=== PATIENT | male | born 1960 | race Caucasian/White ===

== ENCOUNTER 2018-11-11 16:36 | Inpatient (IN) | payer BC ==
[2018-11-11] MEDS ORDERED: ROCURONIUM BROMIDE INJ 50 MG/5 ML VIAL IV ONE (16:45)
[2018-11-11] MEDS ORDERED: ETOMIDATE INJ/PF 20 MG/10 ML SDV IV ONE (16:45)
[2018-11-11] MEDS ORDERED: METHYLPREDNISOLONE INJ 125 MG/2 ML SDV IV ONE (16:55)
[2018-11-11] MEDS ORDERED: IPRATROPIUM/ALBUTEROL 0.5-2.5 MG/3 ML AMPUL NEB ONE (16:55)
--- NOTE | 2018-11-11 16:57 | ER Document Report ---
ED General - General Chief Complaint: Unresponsive Stated Complaint: RESPIRATORY DISTRESS Time Seen by Provider: 11/11/18 16:53 Primary Care Provider: NYDIA JOLLY PA-C [Primary Care Provider] - Follow up as needed Notes: Patient is a 58-year-old male with COPD that presents to the emergency department for chief complaint of unresponsiveness. Per EMS the patient was apparently found unresponsive by family, and he was thought to be sleeping earlier this morning and last night, but then was snoring more and unable to be woken up by family so EMS was called. Upon arrival the patient had a GCS of 3, his pulse ox was in the 80s, but they were able to maintain a pulse ox of 94% with assisted breaths, and a nasopharyngeal airway. Patient has not woken up more for them since initially arriving to the home. They placed a left tibial intraosseous line. Past medical history obtained from family Past Medical History: COPD, obesity, hypertension, hyperlipidemia Past Surgical History: Shoulder surgery Social History: Former smoker, no current alcohol or drug use, lives at home with family Family History: Reviewed and noncontributory for presenting illness Allergies: Reviewed, see documented allergy list. REVIEW OF SYSTEMS: Complete review of systems is not obtainable at this time secondary to the patient's unresponsive state PHYSICAL EXAMINATION: Vital signs reviewed, nursing noted reviewed. GENERAL: Obese male, unresponsive. HEAD: Atraumatic, normocephalic. EYES: PERRLA, sclera anicteric, conjunctiva are normal. ENT: Nasal pharyngeal airway noted in the right nares, there is some blood in t he tubing, and blood in the posterior pharynx NECK: supple without lymphadenopathy, no JVD LUNGS: Expiratory wheezing noted throughout all lung sherwood, with assisted breaths, diminished lung sounds overall HEART: Regular rate and rhythm without murmurs ABDOMEN: Soft, morbidly obese, normoactive bowel sounds. No distention noted, not apparently tender EXTREMITIES: Bilateral lower extremity edema, 2+ pitting, left IO in place in the left tibia. NEUROLOGICAL: GCS: 3 PSYCH: Unresponsive SKIN: Cool, Dry, normal turgor, candidal appearing rash is noted in the groin and on the pannus - Related Data Allergies/Adverse Reactions: No Known Allergies Allergy (Unverified 11/11/18 21:20) Past Medical History - Social History Smoking Status: Current Every Day Smoker Family History: Reviewed & Not Pertinent Physical Exam - Vital signs Vitals: Pulse Resp BP Pulse Ox 91 16 105/45 L 92 11/11/18 16:41 11/11/18 16:41 11/11/18 16:41 11/11/18 16:41 Course - Re-evaluation Re-evalutation: Patient seen and examined vital signs reviewed. Laboratory data and imaging were ordered as appropriate for the patient's presenting symptoms and complaint, with consideration of any critical or life threatening conditions that may be associated with their obtained history and exam as noted above. Patient was treated with RSI, as the patient was unresponsive, GCS of 3 on arrival, with shallow breathing, high suspicion for CO2 narcosis. Patient was successfully intubated, placed on the ventilator, with higher ventilation rate, blood work was obtained, and pending in the lab, EKG did demonstrate prolonged QTC, patient was given 2 g of IV magnesium. In addition the patient was given Solu-Medrol, and DuoNeb breathing treatments Results were reviewed when available and demonstrated ABG came back first, which demonstrated severe respiratory acidosis with a pH of 7.15, and CO2 of greater than 90, the remainder the patient's blood work continue to come back, demonstrated a severe renal impairment and acute renal failure, with hyperkalemia, patient was given she has medications including 10 units of i nsulin, along with an amp of D50, 2 AMPS of sodium bicarbonate, he was also given IV calcium gluconate, 3 g total. Patient was bolused with 3 L of IV normal saline, he was started to become hypotensive, despite bolusing of fluids, and therefore central venous catheter was placed in the right internal jugular vein, as described in procedure notes, patient was started on low-dose norepinephrine at 4 mcg, which was maintained in the patient's blood pressure, onset of this, however the patient was rather asynchronous with the ventilator, and biting down on the tube causing high peak pressures, despite being on propofol and Versed, he was shaking his head and answering simple questions yes and no, and moving all extremities, therefore he was given a single dose of 10 mg of vecuronium, at this point the patient's pulse ox was improving, he was however on 100% FiO2, and his PEEP had to be incr eased to 15. Patient became much more stable, after these measures. At this point I updated the family, and the current state of the patient, including the patient's is at bedside, they stated that when all this occurred, they did not let EMS noted that the patient was effectively a DO NOT INTUBATE patient, and he did not want CPR. I discussed with him at length, that the patient is currently stable, and he was answering questions, and I would not advise extubating him at this time, and that we could potentially wean him off those sedatives, after his paralytic had worn off, to specifically asked the patient if he wanted to continue to be intubated on the ventilator. I discussed this with her risk-management officer Odette Reeves, who felt this was a reasonable approach, and the patient was unable to answer these questions, that I should go with the next of kin which is the patient's 's wishes and what she knows of the patient's wishes, which may be to ultimately extubate the patient in the emergency department. I did plan on transferring him to a tertiary facility, due to the multisystem organ failure including acute renal failure, with the potential need for CVVH, as the patient is requiring pressors, and may require dialysis at some point. We do not offer that this facility. Evaluation was most consistent with acute respiratory failure with hypoxia and hypercapnia, acute renal failure, severe hyperkalemia, respiratory acidosis, hypotension Results were discussed with the patient at this point after careful consideration I feel that that patient should be transferred to [] due to []. This was discussed with the patient that it is in the best interest for their care to be transferred, the risks and benefits of transfer were discussed, including but not limited to clinical deterioration during transport, respiratory distress, and potential for traumatic injuries. Patient agreed with this plan of care. *Note is created using voice recognition software and may contain spelling, syntax or grammatical errors. 11/11/18 21:55 I went into the patients room after sedation had been wean and patient was waking up. I addressed the patient and he was responding to commands. I asked him if he understood he was intubated and he nodded his head. I asked him if he still wanted to the breathing tube in and he nodded yes. I informed him that he was would like very rapidly if it was removed and I asked if he understood this and he nodded yes. I repeated these questions 3 times with the same response. His family was present for this conversation and they felt this was his wishes and agreed to proceed with extubation. The patient was extubated at 2155 and placed on nasal cannula. Patient pulse ox immediately began to desaturate into the 50s. DNR form placed on his chart. 11/11/18 22:48 Patient was reevaluated, he is alert, pulse ox remains in the 60s, nasal cannula, patient is tachycardic, I discussed this case with the hospitalist, Dr. Mike, to admit him for comfort measures, which she was agreeable to, discussed the family and they are appreciative, patient has ordered 2 mg of morphine every 15 minutes for discomfort, he was given a dose of glycopyrrolate for secretions. Laboratory 11/11/18 11/11/18 11/11/18 16:43 16:43 16:43 WBC Cancelled RBC Cancelled Hgb Cancelled Hct Cancelled MCV Cancelled MCH Cancelled MCHC Cancelled RDW Cancelled Plt Count Cancelled Seg Neutrophils % Cancelled Lymphocytes % Cancelled Monocytes % Cancelled Eosinophils % Cancelled Basophils % Cancelled Absolute Neutrophils Cancelled Absolute Lymphocytes Cancelled Absolute Monocytes Cancelled Absolute Eosinophils Cancelled Absolute Basophils Cancelled Platelet Estimate Cancelled PT 12.5 INR 0.89 Carbonic Acid HCO3/H2CO3 Ratio ABG pH ABG pCO2 ABG pO2 ABG HCO3 ABG Total CO2 ABG O2 Saturation ABG Base Excess VBG pH VBG pCO2 VBG HCO3 VBG Base Excess FiO2 Sodium Cancelled Potassium Cancelled Chloride Cancelled Carbon Dioxide Cancelled Anion Gap Cancelled BUN Cancelled Creatinine Cancelled Est GFR ( Amer) Cancelled Est GFR (Non-Af Amer) Cancelled Glucose Cancelled Lactic Acid Calcium Cancelled Total Bilirubin Cancelled Direct Bilirubin Cancelled Neonat Total Bilirubin Cancelled Neonat Direct Bilirubin Cancelled Neonat Indirect Bili Cancelled AST Cancelled ALT Cancelled Alkaline Phosphatase Cancelled Creatine Kinase Cancelled Troponin I Total Protein Cancelled Albumin Cancelled Urine Color Urine Appearance Urine pH Ur Specific [place] Urine Protein Urine Glucose (UA) Urine Ketones Urine Blood Urine Nitrite Urine Bilirubin Urine Urobilinogen Ur Leukocyte Esterase Urine WBC (Auto) Urine RBC (Auto) U Hyaline Cast (Auto) Urine Bacteria (Auto) Squamous Epi Cells Auto Urine Mucus (Auto) Urine Ascorbic Acid Slides for Path Review Cancelled 11/11/18 11/11/1819 16:43 16:43 16:43 WBC RBC Hgb Hct MCV MCH MCHC RDW Plt Count Seg Neutrophils % Lymphocytes % Monocytes % Eosinophils % Basophils % Absolute Neutrophils Absolute Lymphocytes Absolute Monocytes Absolute Eosinophils Absolute Basophils Platelet Estimate PT INR Carbonic Acid HCO3/H2CO3 Ratio ABG pH ABG pCO2 ABG pO2 ABG HCO3 ABG Total CO2 ABG O2 Saturation ABG Base Excess VBG pH Cancelled VBG pCO2 Cancelled VBG HCO3 Cancelled VBG Base Excess Cancelled FiO2 Sodium Potassium Chloride Carbon Dioxide Anion Gap BUN Creatinine Est GFR ( Amer) Est GFR (Non-Af Amer) Glucose Lactic Acid 0.6 L Calcium Total Bilirubin Direct Bilirubin Neonat Total Bilirubin Neonat Direct Bilirubin Neonat Indirect Bili AST ALT Alkaline Phosphatase Creatine Kinase Troponin I Cancelled Total Protein Albumin Urine Color Urine Appearance Urine pH Ur Specific [place] Urine Protein Urine Glucose (UA) Urine Ketones Urine Blood Urine Nitrite Urine Bilirubin Urine Urobilinogen Ur Leukocyte Esterase Urine WBC (Auto) Urine RBC (Auto) U Hyaline Cast (Auto) Urine Bacteria (Auto) Squamous Epi Cells Auto Urine Mucus (Auto) Urine Ascorbic Acid Slides for Path Review 11/11/18 11/11/18 11/11/18 17:05 17:13 17:32 WBC 6.9 RBC 4.22 L Hgb 12.8 L Hct 39.6 MCV 94 MCH 30.2 MCHC 32.2 RDW 15.2 H Plt Count 255 Seg Neutrophils % 83.7 H Lymphocytes % 8.9 L Monocytes % 6.8 Eosinophils % 0.0 Basophils % 0.6 Absolute Neutrophils 5.7 Absolute Lymphocytes 0.6 Absolute Monocytes 0.5 Absolute Eosinophils 0.0 Absolute Basophils 0.0 Platelet Estimate PT INR Carbonic Acid 2.77 H HCO3/H2CO3 Ratio 11:1 ABG pH 7.15 L* ABG pCO2 91.9 H* ABG pO2 62.3 L ABG HCO3 31.5 H ABG Total CO2 34.3 H ABG O2 Saturation 83.3 L ABG Base Excess 0 VBG pH VBG pCO2 VBG HCO3 VBG Base Excess FiO2 50% VENT Sodium Potassium Chloride Carbon Dioxide Anion Gap BUN Creatinine Est GFR ( Amer) Est GFR (Non-Af Amer) Glucose Lactic Acid Calcium Total Bilirubin Direct Bilirubin Neonat Total Bilirubin Neonat Direct Bilirubin Neonat Indirect Bili AST ALT Alkaline Phosphatase Creatine Kinase Troponin I Total Protein Albumin Urine Color YELLOW Urine Appearance SLIGHTLY-CLOUDY Urine pH 5.0 Ur Specific [place] 1.016 Urine Protein 30 H Urine Glucose (UA) NEGATIVE Urine Ketones NEGATIVE Urine Blood NEGATIVE Urine Nitrite NEGATIVE Urine Bilirubin NEGATIVE Urine Urobilinogen NEGATIVE Ur Leukocyte Esterase NEGATIVE Urine WBC (Auto) 1 Urine RBC (Auto) 0 U Hyaline Cast (Auto) 9 Urine Bacteria (Auto) TRACE Squamous Epi Cells Auto 1 Urine Mucus (Auto) RARE Urine Ascorbic Acid NEGATIVE Slides for Path Review 11/11/18 11/11/18 11/11/18 17:43 17:43 21:37 WBC RBC Hgb Hct MCV MCH MCHC RDW Plt Count Seg Neutrophils % Lymphocytes % Monocytes % Eosinophils % Basophils % Absolute Neutrophils Absolute Lymphocytes Absolute Monocytes Absolute Eosinophils Absolute Basophils Platelet Estimate PT INR Carbonic Acid HCO3/H2CO3 Ratio ABG pH ABG pCO2 ABG pO2 ABG HCO3 ABG Total CO2 ABG O2 Saturation ABG Base Excess VBG pH VBG pCO2 VBG HCO3 VBG Base Excess FiO2 Sodium 139.2 138.1 Potassium 8.1 H* 6.5 H* D Chloride 93 L 96 L Carbon Dioxide 34 H 32 H Anion Gap 12 10 BUN 90 H 82 H Creatinine 5.09 H 3.43 H Est GFR ( Amer) 14 L 22 L Est GFR (Non-Af Amer) 12 L 19 L Glucose 172 H 159 H Lactic Acid Calcium 7.4 L 8.2 L Total Bilirubin 0.4 Direct Bilirubin 0.4 Neonat Total Bilirubin Not Reportable Neonat Direct Bilirubin Not Reportable Neonat Indirect Bili Not Reportable AST 38 ALT 25 Alkaline Phosphatase 70 Creatine Kinase 592 H Troponin I 0.017 Total Protein 7.7 Albumin 4.3 Urine Color Urine Appearance Urine pH Ur Specific [place] Urine Protein Urine Glucose (UA) Urine Ketones Urine Blood Urine Nitrite Urine Bilirubin Urine Urobilinogen Ur Leukocyte Esterase Urine WBC (Auto) Urine RBC (Auto) U Hyaline Cast (Auto) Urine Bacteria (Auto) Squamous Epi Cells Auto Urine Mucus (Auto) Urine Ascorbic Acid Slides for Path Review Chest X-Ray 11/11/18 16:55 IMPRESSION: Markedly limited examination demonstrating an apparent endotracheal tube terminating approximately 2.5 cm cranial to the lucia. - Vital Signs Vital signs: Temp Pulse Resp BP Pulse Ox 91 18 121/77 100 11/11/18 16:41 11/11/18 21:00 11/11/18 20:56 11/11/18 21:05 - Laboratory Result Diagrams: 11/11/18 17:32 11/11/18 21:37 Laboratory results interpreted by me: 11/11/18 11/11/18 11/11/18 16:43 17:05 17:13 RBC Hgb RDW Seg Neutrophils % Lymphocytes % Carbonic Acid 2.77 H ABG pH 7.15 L* ABG pCO2 91.9 H* ABG pO2 62.3 L ABG HCO3 31.5 H ABG Total CO2 34.3 H ABG O2 Saturation 83.3 L Potassium Chloride Carbon Dioxide BUN Creatinine Est GFR ( Amer) Est GFR (Non-Af Amer) Glucose Lactic Acid 0.6 L Calcium Creatine Kinase Urine Protein 30 H 11/11/18 11/11/18 11/11/18 17:32 17:43 21:37 RBC 4.22 L Hgb 12.8 L RDW 15.2 H Seg Neutrophils % 83.7 H Lymphocytes % 8.9 L Carbonic Acid ABG pH ABG pCO2 ABG pO2 ABG HCO3 ABG Total CO2 ABG O2 Saturation Potassium 8.1 H* 6.5 H* D Chloride 93 L 96 L Carbon Dioxide 34 H 32 H BUN 90 H 82 H Creatinine 5.09 H 3.43 H Est GFR ( Amer) 14 L 22 L Est GFR (Non-Af Amer) 12 L 19 L Glucose 172 H 159 H Lactic Acid Calcium 7.4 L 8.2 L Creatine Kinase 592 H Urine Protein - EKG Interpretation by Me Additional EKG results interpreted by me: EKG demonstrates sinus rhythm with a ventricular rate of 90 bpm, presence of right bundle branch block and left posterior fascicular block, right axis deviation, QTC is prolonged at [address] depressions noted in leads I and aVL, and deep T wave inversion in V2 and V3 Procedures - Central Line Right Internal jugular Central line pre-insertion: Sterile PPE donned, Chloraprep applied, Sterile drapes applied Central line size (Fr.): 7 Central line lumen type: Triple Anesthetic type: 1% Lidocaine mL's of anesthesia: 2 Ultrasound guided: Yes - Image placed on chart CM at insertion site: 18 Line secured with sutures: Yes Central line post-insertion: Blood return from lumens, Biopatch applied, Sutured, Sterile dressing applied, Position confirmed w/ CXR Number of attempts: 1 Complications: No - Intubation Orotracheal Airway evaluation: Copious secretions, Large tongue, Obese Mallampati Classification: Class 4 Medications: Etomidate - 20mg, Other - Rocuronium 100mg Intubation method: Orotracheal Blade size: 4 Equipment used: Glidescope ETT size: 8.0 ETT secured at: Lips ETT secured at (cm): 23 Breath Sounds after Intubation: Equal End tidal CO2 confirmed: Yes Ventilator settings: SIMV Tidal volume: 500 FiO2: 100 Respirations: 18 PEEP: 15 Post Intubation Xray: Yes Intubation Complications: No complications Critical Care Note - Critical Care Note Total time excluding time spent on procedures (mins): 110 Comments: Critical care time 110 minutes exclusive from separate billable procedures for a patient requiring complex medical decision making, and high potential for clinical deterioration. In a patient with multisystem organ failure including respiratory failure, renal failure, requiring prolonged bedside management, prolonged discussions with family, and risk management, and transfer center. Time spent obtaining history from patient or surrogate, discussions with consultants, development of treatment plan with patient or surrogate, evaluation of patient's response to treatment, examination of patient, ordering and performing treatments and interventions, ordering and review of laboratory studies, re-evaluation of patient's condition, ordering and review of radiographic studies and review of old charts Discharge - Discharge Clinical Impression: Acute respiratory failure with hypoxia and hypercapnia, Hyperkalemia, Acute respiratory acidosis Acute renal failure Qualifiers: Acute renal failure type: unspecified Qualified Code(s): N17.9 - Acute kidney failure, unspecified Hypotension Qualifiers: Hypotension type: unspecified hypotension type Qualified Code(s): I95.9 - Hypotension, unspecified Condition: Critical Disposition: ADMITTED OBSERVATION Admitting Provider: Cee (Hospitalist) Unit Admitted: Medical Floor Referrals: NYDIA JOLLY PA-C [Primary Care Provider] - Follow up as needed
[2018-11-11] MEDS: MAGNESIUM SULFATE/D5W 1 GM/100 ML RTUPB IV SCH ×2 (17:05→17:26)
[2018-11-11] MEDS ORDERED: RINGERS SOLUTION,LACTATED 1,000 ML IV ONE (17:19)
[2018-11-11 17:27] LABS: APPEARANCE,URINE SLIGHTLY-CLOUDY; BILIRUBIN,URINE NEGATIVE (NEGATIVE); COLOR,URINE YELLOW; GLUCOSE, URINE NEGATIVE (NEGATIVE); KETONES,URINE NEGATIVE (NEGATIVE); LEUKOCYTE ESTERASE,URINE NEGATIVE (NEGATIVE); NITRITE,URINE NEGATIVE (NEGATIVE); PROTEIN,URINE 30 mg/dL (NEGATIVE); URINE SPECIFIC GRAVITY 1.016; UROBILINOGEN,URINE NEGATIVE mg/dL (<2.0)
[2018-11-11 17:27] LABS: ARTERIAL BLOOD BASE EXCESS 0 mmol/L; ARTERIAL BLOOD FIO2 50% VENT; ARTERIAL BLOOD H2CO3 2.77 mmol/L (1.05-1.35); ARTERIAL BLOOD HCO3 31.5 mmol/L (20-24); ARTERIAL BLOOD O2 SATURATION 83.3 % (94-98); ARTERIAL BLOOD PO2 62.3 mmHg (80-100); ARTERIAL BLOOD TOTAL CO2 34.3 mmol/L (23-27)
[2018-11-11 17:28] LABS: ARTERIAL BLOOD PCO2 91.9 mmHg (35-45); ARTERIAL BLOOD PH 7.15 (7.35-7.45)
[2018-11-11 17:29] LABS: INTERNATIONAL RATION (INR) 0.89; PROTHROMBIN TIME 12.5 SEC (11.4-15.4)
--- NOTE | 2018-11-11 17:34 | RADIOLOGY REPORT (SQ) ---
EXAM DESCRIPTION: CHEST SINGLE VIEW COMPLETED DATE/TIME: 11/11/2018 5:21 pm REASON FOR STUDY: resp failure, s/p intubation COMPARISON: None. EXAM PARAMETERS: NUMBER OF VIEWS: Two views. TECHNIQUE: Single frontal radiographic view of the chest acquired. RADIATION DOSE: NA LIMITATIONS: Limited field of view and suboptimal technique. FINDINGS: Markedly limited examination demonstrates an apparent endotracheal tube which appears to t erminate approximately 2.5 cm cranial to the lucia. The lung volumes are low. No large pleural eff usion is evident. No discrete pneumothorax is demonstrated. The cardiomediastinal silhouette is not adequately evaluated. Multiple medical devices overlie the chest. No acute osseous findings are de monstrated. IMPRESSION: Markedly limited examination demonstrating an apparent endotracheal tube terminating shelby roximately 2.5 cm cranial to the lucia. TECHNICAL DOCUMENTATION: JOB ID: [id number] [employer]- All Rights Reserved Reading location - IP/workstation name: [email or web address]
[2018-11-11 18:02] LABS: ABSOLUTE LYMPHOCYTES (AUTO) 0.6 10^3/uL (0.5-4.7); ABSOLUTE MONOCYTES (AUTO) 0.5 10^3/uL (0.1-1.4); ABSOLUTE NEUT (AUTO) 5.7 10^3/uL (1.7-8.2); BASOPHILS % (AUTO) 0.6 % (0-2); HEMATOCRIT 39.6 % (37.9-51.0); HEMOGLOBIN 12.8 g/dL (13.5-17.0); LYMPHOCYTES % (AUTO) 8.9 % (13-45); MEAN CORPUSCULAR HEMOGLOBIN 30.2 pg (27.0-33.4); MEAN CORPUSCULAR HGB CONC 32.2 g/dL (32.0-36.0); MEAN CORPUSCULAR VOLUME 94 fl (80-97); MONOCYTES % (AUTO) 6.8 % (3-13); PLATELET COUNT 255 10^3/uL (150-450); RED BLOOD COUNT 4.22 10^6/uL (4.35-5.55); RED CELL DISTRIBUTION WIDTH 15.2 % (11.5-14.0); SEGMENTED NEUTROPHILS % (AUTO) 83.7 % (42-78); TOTAL CELLS COUNTED % (AUTO) 100 %; WHITE BLOOD COUNT 6.9 10^3/uL (4.0-10.5)
[2018-11-11] MEDS ORDERED: FENTANYL CITRATE INJ/PF 100 MCG/2 ML AMPUL IV ONE (18:09)
[2018-11-11] MEDS ORDERED: FENTANYL CITRATE INJ/PF 100 MCG/2 ML AMPUL ONE (18:10)
[2018-11-11] MEDS ORDERED: MIDAZOLAM HCL 50 MG/100 ML RTUINJ IV PRN (18:20)
[2018-11-11] MEDS ORDERED: MIDAZOLAM 2 MG/2 ML INJ IV ONE (18:20)
[2018-11-11 18:26] LABS: ALANINE AMINOTRANSFERASE 25 U/L (21-72); ALBUMIN 4.3 g/dL (3.5-5.0); ALKALINE PHOSPHATASE 70 U/L (38-126); ANION GAP 12 (5-19); ASPARTATE AMINO TRANSFERASE 38 U/L (17-59); BILIRUBIN,DIRECT 0.4 mg/dL (0.0-0.4); BILIRUBIN,TOTAL 0.4 mg/dL (0.2-1.3); BLOOD UREA NITROGEN 90 mg/dL (7-20); CALCIUM 7.4 mg/dL (8.4-10.2); CARBON DIOXIDE 34 mmol/L (22-30); CHLORIDE 93 mmol/L (98-107); CREATINE KINASE 592 U/L (55-170); GLUCOSE 172 mg/dL (75-110); SODIUM 139.2 mmol/L (137-145); TOTAL PROTEIN 7.7 g/dL (6.3-8.2)
[2018-11-11 18:29] LABS: POTASSIUM 8.1 mmol/L (3.6-5.0)
[2018-11-11] MEDS ORDERED: SODIUM BICARBONATE 8.4% INJ 50 MEQ/50 ML DISP.SYRIN IV ONE ×2 (18:31)
[2018-11-11] MEDS ORDERED: INSULIN REG, HUMAN 100 UNIT/ML 3 ML VIAL (PYX) IV ONE (18:32)
[2018-11-11] MEDS ORDERED: DEXTROSE 50%-WATER 25 GM/50 ML DISP.SYRIN IV ONE (18:32)
[2018-11-11] MEDS ORDERED: NORMAL SALINE 1000 ML 1,000 ML IV ONE (18:33)
[2018-11-11] MEDS ORDERED: PHENYLEPHRINE HCL INJ/PF 10 MG/1 ML SDV ONE (18:49)
[2018-11-11] MEDS ORDERED: NOREPINEPHRINE BITARTRATE INJ/PF 4 MG/4 ML SDV IV ONE ×2 (18:51→18:52)
[2018-11-11] MEDS ORDERED: VECURONIUM BROMIDE INJ 10 MG VIAL IV ONE ×2 (19:19→19:20)
[2018-11-11] MEDS ORDERED: PROPOFOL 1,000 MG/100 ML INFUS..BTL IV PRN (19:19)
[2018-11-11] MEDS ORDERED: PROPOFOL 1,000 MG/100 ML INFUS..BTL IV ONE (19:20)
--- NOTE | 2018-11-11 19:25 | EKG REPORT ---
SEVERITY:- ABNORMAL ECG - SINUS RHYTHM RBBB AND LPFB : Confirmed by: Tali Cunningham MD 11-Nov-2018 19:24:51
[2018-11-11] MEDS ORDERED: CALCIUM GLUCONATE 1000 MG/10 ML INJ IV ONE (19:34)
[2018-11-11] MEDS ORDERED: PROPOFOL INJ 200 MG/20 ML VIAL IV ONE (19:37)
--- NOTE | 2018-11-11 19:38 | RADIOLOGY REPORT (SQ) ---
EXAM DESCRIPTION: CHEST SINGLE VIEW COMPLETED DATE/TIME: 11/11/2018 7:28 pm REASON FOR STUDY: post central line COMPARISON: 11/11/2018 EXAM PARAMETERS: NUMBER OF VIEWS: One view. TECHNIQUE: Single frontal radiographic view of the chest acquired. RADIATION DOSE: NA LIMITATIONS: Portable technique and suboptimal patient positioning. FINDINGS: LUNGS AND PLEURA: There appears to be a left sided pleural effusion. The lungs appear javier ssly clear. No pneumothorax is visualized. MEDIASTINUM AND HILAR STRUCTURES: Stable. HEART AND VASCULAR STRUCTURES: Cardiomegaly and central vascular prominence. BONES: No acute findings. HARDWARE: Interval placement of a right central vascular access catheter terminating in the region of the cavoatrial junction. Stable position and appearance of an endotracheal tube. OTHER: No other significant finding. IMPRESSION: Interval placement of a central vascular access catheter terminating in the region of th e cavoatrial junction. Stable endotracheal tube. Grossly stable pulmonary exam. TECHNICAL DOCUMENTATION: JOB ID: [id number] [employer]- All Rights Reserved Reading location - IP/workstation name: [email or web address]
[2018-11-11 22:14] LABS: ANION GAP 10 (5-19); BLOOD UREA NITROGEN 82 mg/dL (7-20); CALCIUM 8.2 mg/dL (8.4-10.2); CARBON DIOXIDE 32 mmol/L (22-30); CHLORIDE 96 mmol/L (98-107); GLUCOSE 159 mg/dL (75-110); SODIUM 138.1 mmol/L (137-145)
[2018-11-11 22:18] LABS: POTASSIUM 6.5 mmol/L (3.6-5.0)
[2018-11-11] MEDS ORDERED: GLYCOPYRROLATE INJ 0.4 MG/2 ML VIAL IM ONE (22:28)
[2018-11-11] MEDS: MORPHINE SULFATE 10 MG/ML INJ IV PRN ×2 (22:38→23:46)
[2018-11-12] MEDS ORDERED: MAG HYDROX/AL HYDROX/SIMETH SUSP 30 ML UDCUP PO PRN (01:03)
[2018-11-12] MEDS ORDERED: MAGNESIUM HYDROXIDE SUSP 30 ML UDCUP PO PRN (01:03)
[2018-11-12] MEDS ORDERED: LEVALBUTEROL HCL NEB 0.63 MG/3 ML AMPUL NEB PRN (01:03)
[2018-11-12] MEDS ORDERED: ONDANSETRON HCL INJ/PF 4 MG/2 ML SDV IV PRN (01:03)
--- NOTE | 2018-11-12 01:03 | PDOC H&P ---
History of Present Illness Admission Date/PCP: 11/11/18 22:56 NYDIA JOLLY PA-C Patient complains of: Acute respiratory failure History of Present Illness: CARLOS CONTRERAS is a 58 year old male who presented to the emergency room via EMS after being found down at home by his family and being discovered to be severely hypoxic and mentally obtunded by EMS upon their arrival. Patient is obtunded at the time of my initial evaluation and is unable to provide further information. Family members admit that he has severe COPD and is on home oxygen at 3 L/min via nasal cannula on a continuous basis. They admit that he has had prior similar but not as severe episodes due to his COPD and they also stressed that he wishes to be not resuscitated nor intubated but they did not communicate this information to the EMS prior to their bring him to the hospital. In the ER he was found to be in severe respiratory failure with marked hypoxia and hypercapnia and he was intubated and ventilated initially. After his family arrived the patient was aroused enough to be able to admit that he did not wish to be on the ventilator or be intubated and resuscitation efforts were discontinued patient was made a comfort measures only status patient as he was admitted to observation status. Past Medical History Cardiac Medical History: Reports: Congestive Heart Failure, Hyperlipidema, Hypertension Denies: Myocardial Infarction Pulmonary Medical History: Reports: Asthma, Bronchitis, Chronic Obstructive Pulmonary Disease (COPD), Pneumonia, Respiratory Failure EENT Medical History: Denies: Cataracts, Ears - Hearing aids Neurological Medical History: Denies: Hemorrhagic CVA, Ischemic CVA, Seizures Endocrine Medical History: Reports: Diabetes Mellitus Type 2 - PRE-DIABETIC, Obesity Denies: Diabetes Mellitus Type 1 Renal/ Medical History: Reports: Chronic Kidney Disease Denies: Nephrolithiasis Malignancy Medical History: Reports: None GI Medical History: Denies: Cirrhosis, Hepatitis Musculoskeltal Medical History: Denies: Arthritis, Gout Skin Medical History: Denies: Eczema, Psoriasis Psychiatric Medical History: Reports: Tobacco Dependency Denies: Alcohol Dependency, Substance Abuse Traumatic Medical History: Reports: None Hematology: Denies: Anemia, Bleeding Tendencies Infectious Medical History: Reports: None Past Surgical History Past Surgical History: Reports: Orthopedic Surgery - Shoulder surgery Social History Information Source: Relative Lives with: Family, Spouse/Significant other Smoking Status: Former Smoker Frequency of Alcohol Use: None Hx Recreational Drug Use: No Drugs: None Hx Prescription Drug Abuse: No - Advance Directive Resuscitation Status: Do Not Resuscitate Surrogate healthcare decision maker:: Saniya Elvis Family History Family History: CAD, DM, Hypertension. denies: Malignancy Parental Family History Reviewed: Yes Children Family History Reviewed: No Sibling(s) Family History Reviewed.: Yes Medication/Allergy Allergies/Adverse Reactions: No Known Allergies Allergy (Unverified 11/11/18 21:20) Review of Systems ROS unobtainable: Due to mental status - Patient is obtunded at the time of my initial evaluation Physical Exam Vital Signs: Temp Pulse Resp BP Pulse Ox 91 27 H 146/100 H 70 L 11/11/18 16:41 11/11/18 23:00 11/11/18 21:52 11/11/18 23:00 Intake & Output 11/10/18 11/11/18 11/12/18 23:59 23:59 23:59 Intake Total 2263 Balance 2263 Weight 173 kg General appearance: PRESENT: no acute distress, morbidly obese, other - Obtunded responding only to painful stimuli. Head exam: PRESENT: atraumatic, normocephalic Eye exam: ABSENT: conjunctival injection, scleral icterus Ear exam: PRESENT: normal external ear exam. ABSENT: bleeding, drainage Mouth exam: PRESENT: dry mucosa, neck supple Neck exam: ABSENT: JVD, thyromegaly, tracheal deviation Respiratory exam: PRESENT: decreased breath sounds - Moderately decreased breath sounds throughout all [place] consistent with moderate to severe COPD, prolonged expiratory phas - Mildly prolonged expiratory phase in all [place], symmetrical, unlabored Cardiovascular exam: PRESENT: RRR. ABSENT: clicks, gallop, rubs Pulses: PRESENT: normal radial pulses, normal dorsalis pedis pul Vascular exam: PRESENT: normal capillary refill. ABSENT: pallor GI/Abdominal exam: PRESENT: normal bowel sounds, soft Rectal exam: PRESENT: deferred Extremities exam: PRESENT: +1 edema - Bilateral pretibial regions. ABSENT: joint swelling Musculoskeletal exam: ABSENT: deformity, dislocation Neurological exam: PRESENT: altered - Obtunded arousing only to painful stimuli, CN II-XII grossly intact. ABSENT: motor sensory deficit - To limited exam Psychiatric exam: PRESENT: other - Patient's being obtunded precludes adequate exam Skin exam: PRESENT: dry, intact, warm. ABSENT: jaundice, rash, urticaria Results Laboratory Results: 11/11/18 17:32 11/11/18 21:37 11/11/18 11/11/18 11/11/18 16:43 16:43 16:43 WBC Cancelled RBC Cancelled Hgb Cancelled Hct Cancelled MCV Cancelled MCH Cancelled MCHC Cancelled RDW Cancelled Plt Count Cancelled Seg Neutrophils % Cancelled Lymphocytes % Cancelled Monocytes % Cancelled Eosinophils % Cancelled Basophils % Cancelled Absolute Neutrophils Cancelled Absolute Lymphocytes Cancelled Absolute Monocytes Cancelled Absolute Eosinophils Cancelled Absolute Basophils Cancelled Carbonic Acid HCO3/H2CO3 Ratio ABG pH ABG pCO2 ABG pO2 ABG HCO3 ABG O2 Saturation ABG Base Excess VBG pH VBG pCO2 VBG HCO3 VBG Base Excess FiO2 Sodium Cancelled Potassium Cancelled Chloride Cancelled Carbon Dioxide Cancelled Anion Gap Cancelled BUN Cancelled Creatinine Cancelled Est GFR ( Amer) Cancelled Est GFR (Non-Af Amer) Cancelled Glucose Cancelled Lactic Acid 0.6 L Calcium Cancelled Total Bilirubin Cancelled AST Cancelled ALT Cancelled Alkaline Phosphatase Cancelled Total Protein Cancelled Albumin Cancelled Urine Color Urine Appearance Urine pH Ur Specific [place] Urine Protein Urine Glucose (UA) Urine Ketones Urine Blood Urine Nitrite Ur Leukocyte Esterase Urine WBC (Auto) Urine RBC (Auto) 11/11/18 11/11/18 11/11/18 16:43 17:05 17:13 WBC RBC Hgb Hct MCV MCH MCHC RDW Plt Count Seg Neutrophils % Lymphocytes % Monocytes % Eosinophils % Basophils % Absolute Neutrophils Absolute Lymphocytes Absolute Monocytes Absolute Eosinophils Absolute Basophils Carbonic Acid 2.77 H HCO3/H2CO3 Ratio 11:1 ABG pH 7.15 L* ABG pCO2 91.9 H* ABG pO2 62.3 L ABG HCO3 31.5 H ABG O2 Saturation 83.3 L ABG Base Excess 0 VBG pH Cancelled VBG pCO2 Cancelled VBG HCO3 Cancelled VBG Base Excess Cancelled FiO2 50% VENT Sodium Potassium Chloride Carbon Dioxide Anion Gap BUN Creatinine Est GFR ( Amer) Est GFR (Non-Af Amer) Glucose Lactic Acid Calcium Total Bilirubin AST ALT Alkaline Phosphatase Total Protein Albumin Urine Color YELLOW Urine Appearance SLIGHTLY-CLOUDY Urine pH 5.0 Ur Specific [place] 1.016 Urine Protein 30 H Urine Glucose (UA) NEGATIVE Urine Ketones NEGATIVE Urine Blood NEGATIVE Urine Nitrite NEGATIVE Ur Leukocyte Esterase NEGATIVE Urine WBC (Auto) 1 Urine RBC (Auto) 0 11/11/18 11/11/18 11/11/18 17:32 17:43 21:37 WBC 6.9 RBC 4.22 L Hgb 12.8 L Hct 39.6 MCV 94 MCH 30.2 MCHC 32.2 RDW 15.2 H Plt Count 255 Seg Neutrophils % 83.7 H Lymphocytes % 8.9 L Monocytes % 6.8 Eosinophils % 0.0 Basophils % 0.6 Absolute Neutrophils 5.7 Absolute Lymphocytes 0.6 Absolute Monocytes 0.5 Absolute Eosinophils 0.0 Absolute Basophils 0.0 Carbonic Acid HCO3/H2CO3 Ratio ABG pH ABG pCO2 ABG pO2 ABG HCO3 ABG O2 Saturation ABG Base Excess VBG pH VBG pCO2 VBG HCO3 VBG Base Excess FiO2 Sodium 139.2 138.1 Potassium 8.1 H* 6.5 H* D Chloride 93 L 96 L Carbon Dioxide 34 H 32 H Anion Gap 12 10 BUN 90 H 82 H Creatinine 5.09 H 3.43 H Est GFR ( Amer) 14 L 22 L Est GFR (Non-Af Amer) 12 L 19 L Glucose 172 H 159 H Lactic Acid Calcium 7.4 L 8.2 L Total Bilirubin 0.4 AST 38 ALT 25 Alkaline Phosphatase 70 Total Protein 7.7 Albumin 4.3 Urine Color Urine Appearance Urine pH Ur Specific [place] Urine Protein Urine Glucose (UA) Urine Ketones Urine Blood Urine Nitrite Ur Leukocyte Esterase Urine WBC (Auto) Urine RBC (Auto) 11/11/18 11/11/18 11/11/18 16:43 16:43 17:43 Creatine Kinase Cancelled Troponin I Cancelled 0.017 11/11/18 17:43 Creatine Kinase 592 H Troponin I Impressions: Chest X-Ray 11/11/18 16:55 IMPRESSION: Markedly limited examination demonstrating an apparent endotracheal tube terminating approximately 2.5 cm cranial to the lucia. Assessment and Plan - Diagnosis (1) Acute respiratory failure with hypoxia and hypercapnia Is this a current diagnosis for this admission?: Yes Plan: Patient was initially intubated but he was extubated at his and his family's request to be DNR/DNI. He will be treated with supportive measures and supplemental oxygen up to 3 L/min per nasal cannula. He will be allowed to use airway pressure support devices of a noninvasive nature if he wishes to try them for his respiratory comfort. (2) Acute respiratory acidosis Is this a current diagnosis for this admission?: Yes Plan: Patient was initially treated aggressively with intubation and ventilation but he is now extubated and he will not be reintubated per his and his family's request. His respiratory acidosis will be treated only with supportive care although the patient will be allowed to use noninvasive airway pressure support devices as he would desire for his comfort. (3) Acute renal failure superimposed on chronic kidney disease Qualifiers: Acute renal failure type: unspecified Chronic kidney disease stage: stage 4 (severe) Qualified Code(s): N17.9 - Acute kidney failure, unspecified; N18.4 - Chronic kidney disease, stage 4 (severe) Is this a current diagnosis for this admission?: Yes Plan: Patient's acute renal failure will be treated with IV fluids and his electrolytes and kidney functions were followed on a regular basis. If patient/family elects to discontinue IV fluids as part of comfort measures only this will be done, but until such time supportive measures will be continued as well symptomatic measures. (4) Hyperkalemia Is this a current diagnosis for this admission?: Yes Plan: Patient will be treated with IV fluids utilizing normal saline for volume repla cement and delusional relief of hyperkalemia. Additionally he will be given respiratory therapy with nebulized albuterol and will also receive Kayexalate if this is acceptable to the patient/family. (5) Hypotension Qualifiers: Hypotension type: unspecified hypotension type Qualified Code(s): I95.9 - Hypotension, unspecified Is this a current diagnosis for this admission?: Yes Plan: Patient be treated with IV fluids utilizing normal saline to help normalize his volume and maintain a blood pressure. No use of pressor agents as planned at the present time however this could be discussed in the future if the family changes her mind about comfort measures only. (6) Gu-zzg-lmibirt cardiopulmonary resuscitation status Is this a current diagnosis for this admission?: Yes (7) Iy-ywg-wdvyblbp resuscitation status Is this a current diagnosis for this admission?: Yes (8) Comfort measures only status Is this a current diagnosis for this admission?: Yes - Time Time Spent with patient: 25-34 minutes - Inpatient Certification Based on my medical assessment, after consideration of the patient's comorbidities, presenting symptoms, or acuity I expect that the services needed warrant INPATIENT care.: No I certify that my determination is in accordance with my understanding of Medicare's requirements for reasonable and necessary INPATIENT services [42 CFR 412.3e].: No
[2018-11-12] MEDS ORDERED: DEXTROSE 40% GEL 15 GM TUBE PO PRN ×2 (01:19)
[2018-11-12] MEDS ORDERED: GLUCAGON,HUMAN RECOMB 1 MG INJ IM PRN (01:19)
[2018-11-12] MEDS ORDERED: DEXTROSE 50%-WATER 25 GM/50 ML DISP.SYRIN IV PRN ×2 (01:19)
[2018-11-12] MEDS ORDERED: INSULIN REG, HUMAN 100 UNIT/ML 3 ML VIAL (PYX) SUBCUT PRN (01:19)
[2018-11-12] MEDS ORDERED: HYDRALAZINE HCL INJ/PF 20 MG/1 ML SDV IV PRN (01:20)
[2018-11-12] MEDS ORDERED: CHLORPROMAZINE HCL INJ 25 MG/1 ML AMPULE IV PRN ×2 (01:25→06:30)
[2018-11-12] MEDS ORDERED: SODIUM POLYSTYRENE SULFONATE 15 GM/60 ML PO SCH (01:30)
[2018-11-12] MEDS ORDERED: METOPROLOL TARTRATE PF/INJ 5 MG/5 ML SDV IV SCH (01:30)
[2018-11-12] MEDS ORDERED: CHLORPROMAZINE HCL INJ 25 MG/1 ML AMPULE ONE (01:40)
[2018-11-12] MEDS: METOPROLOL TARTRATE PF/INJ 5 MG/5 ML SDV IV SCH ×2 (02:13→05:20)
[2018-11-12] MEDS: NORMAL SALINE 1000 ML 1,000 ML IV PRN ×3 (02:13→14:36)
[2018-11-12 03:10] LABS: CREATINE KINASE MB 44.4 ng/mL (<4.55); TROPONIN I 0.04 ng/mL
[2018-11-12] MEDS: MORPHINE SULFATE 10 MG/ML INJ IV PRN ×6 (03:18→20:53)
[2018-11-12] MEDS: HEPARIN SOD (PORCINE) 5,000 UNIT/ML 1 ML SYRINGE SUBCUT SCH ×2 (05:20→21:19)
[2018-11-12] MEDS ORDERED: PANTOPRAZOLE SODIUM 40 MG TABLET.DR PO SCH (06:00)
[2018-11-12 06:37] VITALS: BP 101/62
[2018-11-12] MEDS ORDERED: BUDESONIDE NEB 0.5 MG/2 ML AMPUL NEB SCH (08:00)
[2018-11-12] MEDS ORDERED: IPRATROPIUM BROMIDE 0.02% NEB 0.5 MG/2.5 ML AMPUL NEB SCH (08:00)
[2018-11-12] MEDS ORDERED: LEVALBUTEROL HCL NEB 1.25 MG/3 ML AMPUL NEB SCH (08:00)
[2018-11-12] MEDS ORDERED: ROCURONIUM BROMIDE INJ 50 MG/5 ML VIAL IV ONE ×2 (09:21)
[2018-11-12] MEDS ORDERED: DOCUSATE SODIUM 100 MG CAPSULE PO SCH (10:00)
[2018-11-12] MEDS: SODIUM POLYSTYRENE SULFONATE 15 GM/60 ML PO SCH ×2 (10:00→21:19)
--- NOTE | 2018-11-12 11:14 | PDOC PROGRESS REPORT ---
Subjective Progress Note for:: 11/12/18 Subjective:: 58 year old male who presented to the emergency room via EMS after being found down at home by his family and being discovered to be severely hypoxic and mentally obtunded by EMS upon their arrival. Patient is obtunded at the time of my initial evaluation and is unable to provide further information. Family members admit that he has severe COPD and is on home oxygen at 3 L/min via nasal cannula on a continuous basis. They admit that he has had prior similar but not as severe episodes due to his COPD and they also stressed that he wishes to be not resuscitated nor intubated but they did not communicate this information to the EMS prior to their bring him to the hospital. In the ER he was found to be in severe respiratory failure with marked hypoxia and hypercapnia and he was intubated and ventilated initially. After his family arrived the patient was aroused enough to be able to admit that he did not wish to be on the ventilator or be intubated and resuscitation efforts were discontinued patient was made a comfort measures only status patient as he was admitted to observation status. 11/[id number]-old male brought in hypoxic obtunded by EMS status post intubation and that he was later on extubated because the family requested for a DNR/DNI. Patient is presently on comfort care measures only. is agreed for hospice referral. Recently on BiPAP. Not responsive. Reason For Visit: ACUTE RESPIRATORY FAILURE Physical Exam Vital Signs: Temp Pulse Resp BP Pulse Ox 99.8 F 117 H 22 H 101/62 91 L 11/12/18 01:51 11/12/18 08:13 11/12/18 08:13 11/12/18 01:51 11/12/18 08:13 Intake & Output 11/11/18 11/12/18 11/13/18 06:59 06:59 06:59 Intake Total 2783 Output Total 450 Balance 2333 Weight 174.8 kg General appearance: PRESENT: no acute distress, morbidly obese, other - responding to painful stimuli. Head exam: PRESENT: atraumatic Eye exam: PRESENT: PERRLA, other - Nipples are constricted but reactive. Mouth exam: PRESENT: moist, tongue midline Teeth exam: PRESENT: poor dentation Neck exam: ABSENT: carotid bruit, JVD, lymphadenopathy, thyromegaly Respiratory exam: PRESENT: decreased breath sounds Cardiovascular exam: PRESENT: tachycardia GI/Abdominal exam: PRESENT: soft, other - Bowel sounds are sluggish.. ABSENT: distended, guarding, mass, organolmegaly, rebound, tenderness Rectal exam: PRESENT: deferred Extremities exam: PRESENT: full ROM. ABSENT: calf tenderness, clubbing, pedal edema Neurological exam: PRESENT: other - Patient is obtunded not responding only to painful stimuli, absent motor and sensory reflexes. Results Laboratory Results: 11/11/18 17:32 11/11/18 21:37 11/11/18 11/11/18 11/11/18 16:43 16:43 16:43 WBC Cancelled RBC Cancelled Hgb Cancelled Hct Cancelled MCV Cancelled MCH Cancelled MCHC Cancelled RDW Cancelled Plt Count Cancelled Seg Neutrophils % Cancelled Lymphocytes % Cancelled Monocytes % Cancelled Eosinophils % Cancelled Basophils % Cancelled Absolute Neutrophils Cancelled Absolute Lymphocytes Cancelled Absolute Monocytes Cancelled Absolute Eosinophils Cancelled Absolute Basophils Cancelled Carbonic Acid HCO3/H2CO3 Ratio ABG pH ABG pCO2 ABG pO2 ABG HCO3 ABG O2 Saturation ABG Base Excess VBG pH VBG pCO2 VBG HCO3 VBG Base Excess FiO2 Sodium Cancelled Potassium Cancelled Chloride Cancelled Carbon Dioxide Cancelled Anion Gap Cancelled BUN Cancelled Creatinine Cancelled Est GFR ( Amer) Cancelled Est GFR (Non-Af Amer) Cancelled Glucose Cancelled Lactic Acid 0.6 L Calcium Cancelled Total Bilirubin Cancelled AST Cancelled ALT Cancelled Alkaline Phosphatase Cancelled Total Protein Cancelled Albumin Cancelled Urine Color Urine Appearance Urine pH Ur Specific [place] Urine Protein Urine Glucose (UA) Urine Ketones Urine Blood Urine Nitrite Ur Leukocyte Esterase Urine WBC (Auto) Urine RBC (Auto) 11/11/18 11/11/18 11/11/18 16:43 17:05 17:13 WBC RBC Hgb Hct MCV MCH MCHC RDW Plt Count Seg Neutrophils % Lymphocytes % Monocytes % Eosinophils % Basophils % Absolute Neutrophils Absolute Lymphocytes Absolute Monocytes Absolute Eosinophils Absolute Basophils Carbonic Acid 2.77 H HCO3/H2CO3 Ratio 11:1 ABG pH 7.15 L* ABG pCO2 91.9 H* ABG pO2 62.3 L ABG HCO3 31.5 H ABG O2 Saturation 83.3 L ABG Base Excess 0 VBG pH Cancelled VBG pCO2 Cancelled VBG HCO3 Cancelled VBG Base Excess Cancelled FiO2 50% VENT Sodium Potassium Chloride Carbon Dioxide Anion Gap BUN Creatinine Est GFR ( Amer) Est GFR (Non-Af Amer) Glucose Lactic Acid Calcium Total Bilirubin AST ALT Alkaline Phosphatase Total Protein Albumin Urine Color YELLOW Urine Appearance SLIGHTLY-CLOUDY Urine pH 5.0 Ur Specific [place] 1.016 Urine Protein 30 H Urine Glucose (UA) NEGATIVE Urine Ketones NEGATIVE Urine Blood NEGATIVE Urine Nitrite NEGATIVE Ur Leukocyte Esterase NEGATIVE Urine WBC (Auto) 1 Urine RBC (Auto) 0 11/11/18 11/11/18 11/11/18 17:32 17:43 21:37 WBC 6.9 RBC 4.22 L Hgb 12.8 L Hct 39.6 MCV 94 MCH 30.2 MCHC 32.2 RDW 15.2 H Plt Count 255 Seg Neutrophils % 83.7 H Lymphocytes % 8.9 L Monocytes % 6.8 Eosinophils % 0.0 Basophils % 0.6 Absolute Neutrophils 5.7 Absolute Lymphocytes 0.6 Absolute Monocytes 0.5 Absolute Eosinophils 0.0 Absolute Basophils 0.0 Carbonic Acid HCO3/H2CO3 Ratio ABG pH ABG pCO2 ABG pO2 ABG HCO3 ABG O2 Saturation ABG Base Excess VBG pH VBG pCO2 VBG HCO3 VBG Base Excess FiO2 Sodium 139.2 138.1 Potassium 8.1 H* 6.5 H* D Chloride 93 L 96 L Carbon Dioxide 34 H 32 H Anion Gap 12 10 BUN 90 H 82 H Creatinine 5.09 H 3.43 H Est GFR ( Amer) 14 L 22 L Est GFR (Non-Af Amer) 12 L 19 L Glucose 172 H 159 H Lactic Acid Calcium 7.4 L 8.2 L Total Bilirubin 0.4 AST 38 ALT 25 Alkaline Phosphatase 70 Total Protein 7.7 Albumin 4.3 Urine Color Urine Appearance Urine pH Ur Specific [place] Urine Protein Urine Glucose (UA) Urine Ketones Urine Blood Urine Nitrite Ur Leukocyte Esterase Urine WBC (Auto) Urine RBC (Auto) 11/11/18 11/11/18 11/11/18 16:43 16:43 17:43 Creatine Kinase Cancelled CK-MB (CK-2) Troponin I Cancelled 0.017 NT-Pro-B Natriuret Pep 11/11/18 11/12/18 11/12/18 17:43 02:10 02:10 Creatine Kinase 592 H 3031 H CK-MB (CK-2) 44.40 H Troponin I 0.040 NT-Pro-B Natriuret Pep 1200 H Impressions: Chest X-Ray 11/11/18 16:55 IMPRESSION: Markedly limited examination demonstrating an apparent endotracheal tube terminating approximately 2.5 cm cranial to the lucia. Assessment and Plan - Diagnosis (1) Acute respiratory failure with hypoxia and hypercapnia Is this a current diagnosis for this admission?: Yes Plan: Patient was initially intubated but he was extubated at his and his family's request to be DNR/DNI. He will be treated with supportive measures and supplemental oxygen up to 3 L/min per nasal cannula. He will be allowed to use airway pressure support devices of a noninvasive nature if he wishes to try them for his respiratory comfort. 11/12/2018-patient was initially intubated in the emergency room on the lateral and extubated as per the family request because his CODE STATUS is DNR/DNI. Presently on BiPAP. Family requested for comfort care measures and the patient's agreed for hospice care. We are providing supplemental oxygen by noninvasive procedure. (2) Comfort measures only status Is this a current diagnosis for this admission?: Yes Plan: 11/12/2018-patient is comfort care only. is requesting for hospice referral. (3) Qh-tvd-eczppevf resuscitation status Is this a current diagnosis for this admission?: Yes Plan: 11/12/2018-as per the family patient CODE STATUS is DNR/DNI. Initially he was intubated in the emergency room later on was extubated. Plan comfort care measures only . is requesting for hospice referral. (4) Hyperkalemia Is this a current diagnosis for this admission?: Yes Plan: Patient will be treated with IV fluids utilizing normal saline for volume replacement and delusional relief of hyperkalemia. Additionally he will be given respiratory therapy with nebulized albuterol and will also receive Kayexalate if this is acceptable to the patient/family. 11/12/2018-patient came in with hyperkalemia of potassium more than 8 latest potassium is 6.5. Because of the comfort care status and hospice request no further labs are initiated. (5) Acute renal failure superimposed on chronic kidney disease Qualifiers: Acute renal failure type: unspecified Chronic kidney disease stage: stage 4 (severe) Qualified Code(s): N17.9 - Acute kidney failure, unspecified; N18.4 - Chronic kidney disease, stage 4 (severe) Is this a current diagnosis for this admission?: Yes Plan: Patient's acute renal failure will be treated with IV fluids and his electrolytes and kidney functions were followed on a regular basis. If patient/family elects to discontinue IV fluids as part of comfort measures only this will be done, but until such time supportive measures will be continued as well symptomatic measures. 11/[id number]-old male admitted with acute renal failure superimposed on chronic kidney disease. Because of the comfort care status and request for hospice referral patient is not on any IV fluids. (6) Morbid obesity Is this a current diagnosis for this admission?: Yes Plan: 11/12/2018-patient BMI is more than 60. He is on comfort care measures only. (7) Rhabdomyolysis Is this a current diagnosis for this admission?: Yes Plan: 11/12/2018-patient's CK level is more than 3000 most likely secondary to resuscitation efforts. - Time Time Spent with patient: 25-34 minutes Medications reviewed and adjusted accordingly: Yes Anticipated discharge: Hospice
[2018-11-12 13:01] LABS: ABSOLUTE LYMPHOCYTES (AUTO) 0.6 10^3/uL (0.5-4.7); ABSOLUTE MONOCYTES (AUTO) 0.8 10^3/uL (0.1-1.4); ABSOLUTE NEUT (AUTO) 8.4 10^3/uL (1.7-8.2); BASOPHILS % (AUTO) 0.3 % (0-2); HEMATOCRIT 37.4 % (37.9-51.0); LYMPHOCYTES % (AUTO) 6.5 % (13-45); MEAN CORPUSCULAR HEMOGLOBIN 29.9 pg (27.0-33.4); MEAN CORPUSCULAR HGB CONC 32.2 g/dL (32.0-36.0); MEAN CORPUSCULAR VOLUME 93 fl (80-97); MONOCYTES % (AUTO) 7.9 % (3-13); PLATELET COUNT 250 10^3/uL (150-450); RED BLOOD COUNT 4.02 10^6/uL (4.35-5.55); RED CELL DISTRIBUTION WIDTH 15.3 % (11.5-14.0); SEGMENTED NEUTROPHILS % (AUTO) 85.3 % (42-78); TOTAL CELLS COUNTED % (AUTO) 100 %; WHITE BLOOD COUNT 9.9 10^3/uL (4.0-10.5)
[2018-11-12] MEDS ORDERED: LORAZEPAM INJ 2 MG/1 ML VIAL IV ONE (13:40)
[2018-11-12 14:20] LABS: ALANINE AMINOTRANSFERASE 42 U/L (21-72); ALBUMIN 3.8 g/dL (3.5-5.0); ALKALINE PHOSPHATASE 73 U/L (38-126); ANION GAP 11 (5-19); ASPARTATE AMINO TRANSFERASE 98 U/L (17-59); BILIRUBIN,DIRECT 0.3 mg/dL (0.0-0.4); BILIRUBIN,TOTAL 0.4 mg/dL (0.2-1.3); BLOOD UREA NITROGEN 88 mg/dL (7-20); CALCIUM 8.1 mg/dL (8.4-10.2); CARBON DIOXIDE 32 mmol/L (22-30); CHLORIDE 96 mmol/L (98-107); GLUCOSE 176 mg/dL (75-110); SODIUM 138.8 mmol/L (137-145); TOTAL PROTEIN 6.9 g/dL (6.3-8.2)
[2018-11-12 14:23] LABS: POTASSIUM 7.2 mmol/L (3.6-5.0)
[2018-11-12 14:37] LABS: FREE T3 3.26 pg/mL (2.77-5.27); FREE T4 (FREE THYROXINE) 0.59 ng/dL (0.78-2.19)
[2018-11-12] MEDS ORDERED: MORPHINE SULFATE 10 MG/ML INJ IV PRN ×2 (14:44→14:45)
[2018-11-12 14:50] LABS: THYROID STIMULATING HORMONE 0.17 uIU/mL (0.47-4.68)
[2018-11-12] MEDS ORDERED: SCOPOLAMINE HYDROBROMIDE 1.5 MG PATCH.TD72 TD ONE (15:00)
[2018-11-12] MEDS: LORAZEPAM INJ 2 MG/1 ML VIAL IV PRN ×2 (17:30→22:27)
[2018-11-13] MEDS: MORPHINE SULFATE 10 MG/ML INJ IV PRN (03:47)
[2018-11-13] MEDS: LORAZEPAM INJ 2 MG/1 ML VIAL IV PRN (05:00)
--- NOTE | 2018-11-13 12:40 | Death Summary ---
Summary Date : 11/13/18 Time of :: 05:20 Autopsy: No Resuscitation Status: Comfort Measures Only - Final Diagnosis (1) Acute respiratory failure with hypoxia and hypercapnia Is this a current diagnosis for this admission?: Yes (2) Comfort measures only status Is this a current diagnosis for this admission?: Yes (3) Ne-cxy-nakfrjld resuscitation status Is this a current diagnosis for this admission?: Yes (4) Hyperkalemia Is this a current diagnosis for this admission?: Yes (5) Acute renal failure superimposed on chronic kidney disease Is this a current diagnosis for this admission?: Yes (6) Morbid obesity Is this a current diagnosis for this admission?: Yes (7) Rhabdomyolysis Is this a current diagnosis for this admission?: Yes Hospital Course:: 58 year old male who presented to the emergency room via EMS after being found down at home by his family and being discovered to be severely hypoxic and mentally obtunded by EMS upon their arrival. Patient is obtunded at the time of my initial evaluation and is unable to provide further information. Family members admit that he has severe COPD and is on home oxygen at 3 L/min via nasal cannula on a continuous basis. They admit that he has had prior similar but not as severe episodes due to his COPD and they also stressed that he wishes to be not resuscitated nor intubated but they did not communicate this information to the EMS prior to their bring him to the hospital. In the ER he was found to be in severe respiratory failure with marked hypoxia and hypercapnia and he was intubated and ventilated initially. After his family arrived the patient was aroused enough to be able to admit that he did not wish to be on the ventilator or be intubated and resuscitation efforts were discontinued patient was made a comfort measures only status patient as he was admitted to observation status. 11/[id number]-[id number]-old male brought in hypoxic obtunded by EMS status post intubation and that he was later on extubated because the family requested for a DNR/DNI. Patient is presently on comfort care measures only. is agreed for hospice referral. Recently on BiPAP. Not responsive. [id number]-old male with history of morbid obesity, sleep apnea, history of end-stage COPD brought in in altered mental status obtunded severely hypoxic. In the emergency room he was intubated later family notified the ER team that patient's CODE STATUS is DNR/DNI he was extubated and admitted to hospital for further management. Yesterday morning family requested for comfort care measures only and hospice referral. As per the family request all the information was discontinued except for supplemental oxygen and IV morphine and IV Ativan. Patient peacefully around 5:20 AM this morning. Body is released to home this morning. certificate was signed by Dr. Gorman.
== END 2018-11-13 08:20 | disposition left against medical advice (07) | DRG 208 ==
LOC: EDBD → ER 16:36 → OBSVTOIN 22:56 → EH 22:56 → 4S 11-12 00:59
PROVIDERS: ADMIT Emergency Medicine; ATTEND Emergency Medicine
PROC: 5A1935Z Respiratory Ventilation, Less than 24 Consecutive Hours (ICD-10-PCS; principal; 2018-11-11)
PROC: 0BH17EZ Insertion of Endotracheal Airway into Trachea, Via Natural or Artificial Opening (ICD-10-PCS; 2018-11-11)
PROC: 02HV33Z Insertion of Infusion Device into Superior Vena Cava, Percutaneous Approach (ICD-10-PCS; 2018-11-11)
DX: J96.02 Acute respiratory failure with hypercapnia (principal); E87.2 Acidosis; N17.9 Acute kidney failure, unspecified; N18.4 Chronic kidney disease, stage 4 (severe); M62.82 Rhabdomyolysis; Z68.44 Body mass index [BMI] 60.0-69.9, adult; E87.5 Hyperkalemia; J96.01 Acute respiratory failure with hypoxia; Z66 Do not resuscitate; J44.9 Chronic obstructive pulmonary disease, unspecified; I12.9 Hypertensive chronic kidney disease with stage 1 through stage 4 chronic kidney disease, or unspecified chronic kidney disease; E78.5 Hyperlipidemia, unspecified; E66.01 Morbid (severe) obesity due to excess calories; Z87.891 Personal history of nicotine dependence; Z99.81 Dependence on supplemental oxygen
CPT/HCPCS: 36415; 36600; 51702; 71045; 80048; 80053; 81001; 82550; 82553; 82803; 82962; 83036; 83605; 83735; 83880; 84439; 84443; 84481; 84484; 85025; 85610; 87040; 87077; 87186; 93005; 93010; 94002; 94640; 94660; 96361; 96365; 96366; 96368; 96372; 96375; 96376; 99291; 99292; C1751; J0610; J1815; J2060; J2250; J2270; J2704; J2930; J3010; J3230; J3475; J3490; J7030; J7120; J7620